=== PATIENT | female | born 1940 | race Caucasian/White ===

== ENCOUNTER → 2024-11-24 | Day surgery (SDC) | payer OTHER ==
[2024-11-20 13:20] LABS: BASOPHILS # (AUTO) 0.1 (0.0-0.1); BASOPHILS % 0.8 % (0.0-1.0); EOSINOPHILS # (AUTO) 0.2 (0.0-0.4); EOSINOPHILS % 1.5 % (0.0-6.0); HEMATOCRIT 41.9 % (34.2-44.1); HEMOGLOBIN 13.4 g/dL (12.0-16.0); LYMPHOCYTES # (AUTO) 0.8 (1.0-3.2); LYMPHOCYTES % 6.2 % (18.0-39.1); MEAN CORPUSCULAR HEMOGLOBIN 28.8 pg (28-32); MEAN CORPUSCULAR VOLUME 89.9 fL (81-99); MONOCYTES # (AUTO) 0.6 (0.2-0.8); MONOCYTES % 4.7 % (4.4-11.3); NEUTROPHILS # (AUTO) 10.7 (2.1-6.9); NEUTROPHILS % 86.1 % (38.7-80.0); PLATELET COUNT 262 x10e3/uL (140-360); RED BLOOD COUNT 4.66 x10e6/uL (3.6-5.1); RED CELL DISTRIBUTION WIDTH 14.2 % (11.7-14.4); WHITE BLOOD COUNT 12.38 x10e3/uL (4.8-10.8)
[~2024-11-24] MED LIST: ASPIRIN81 M3; BACTRIM DS TAB1 EACH PO; ENULOSE10 GM/15 M PO; RYALTRIS 665-2529 GM; TUMS ULTRA400 MG PO; VITAMIN D PO; VITAMIN D32400 UNIT/; Z.0.CENTRUM SILVER1 PO; Z.0.CRESTOR5 MG PO; Z.0.LOVAZA1 GM PO; Z.1.VERAPAMIL ER240 PO; Z.2.TRIAMTERENE-HC1 PO; [UNRECOGNIZED DRUG - OTHER]
[2024-11-24] MEDS: LACTATED RINGER'S 1,000 ML ONE (14:19)
[2024-11-24 16:40] VITALS: BP 156/76; PULSE 64; RESP 17; O2SAT 96
== END | disposition home or self-care (01) ==
LOC: ENDO 13:32
PROVIDERS: ATTEND Internal Medicine Gastroenterology
DX: K62.5 Hemorrhage of anus and rectum (principal); D12.5 Benign neoplasm of sigmoid colon; K62.1 Rectal polyp; K57.30 Diverticulosis of large intestine without perforation or abscess without bleeding; K59.00 Constipation, unspecified; K21.9 Gastro-esophageal reflux disease without esophagitis; I10 Essential (primary) hypertension; J32.9 Chronic sinusitis, unspecified; K64.8 Other hemorrhoids; M06.9 Rheumatoid arthritis, unspecified; Z88.1 Allergy status to other antibiotic agents; Z88.0 Allergy status to penicillin; Z88.8 Allergy status to other drugs, medicaments and biological substances; Z01.810 Encounter for preprocedural cardiovascular examination; Z01.812 Encounter for preprocedural laboratory examination; Z79.899 Other long term (current) drug therapy; Z86.19 Personal history of other infectious and parasitic diseases
CPT/HCPCS: 36415; 45380; 45384; 85025; 88305; 93005; J7121